=== PATIENT | male | born 1995 | race Hispanic/Latino ===

== ENCOUNTER 2018-04-13 15:11 | Emergency (ER) | payer OTHER ==
[~2018-04-13] VITALS: Ht 165.1 cm; Wt 70.1 kg
[2018-04-13] MEDS ORDERED: KEFLEX500 MG PO (17:41)
[2018-04-13 17:50] VITALS: BP 138/89
== END 2018-04-13 17:50 | disposition home or self-care (01) ==
LOC: EME 15:11
PROC: 0HQGXZZ Repair Left Hand Skin, External Approach (ICD-10-PCS; principal; 2018-04-13)
DX: S62.605B Fracture of unspecified phalanx of left ring finger, initial encounter for open fracture (principal); W22.8XXA Striking against or struck by other objects, initial encounter; Y99.0 Civilian activity done for income or pay
CPT/HCPCS: 99281; 99284